=== PATIENT | male | born 1990 | race Caucasian/White ===

== ENCOUNTER 2017-01-09 16:56 | Emergency (ER) | payer SELFPAY ==
[~2017-01-09] VITALS: Ht 165.1 cm; Wt 144.0 kg
[2017-01-09 17:05] VITALS: BP 182/125; PULSE 84; RESP 14; TEMP 98.6; O2SAT 97
[2017-01-09 17:24] VITALS: BP 187/122
--- NOTE | 2017-01-09 17:28 | PD ---
HPI Chief Complaint: Respiratory Symptoms Time Seen by Provider: 17:24 Travel History International Travel<30 days: No Contact w/Intl Traveler<30days: No Traveled to known affect area: No History of Present Illness HPI 26-year-old male that presents to the ED for evaluation of cold-like symptoms since Friday. Patient reports that he does have a history of ear infections in the past. Per patient his been having some congestion and cough is productive since Friday. Nothing makes it better. Per patient he took a prescription for oral Bactrim with no relief. His been taking OTC medicines as needed. No allergies to medication. No chest pain. No sick contacts or recent travel. No abdominal pain. No nausea or vomiting. No bowel movement or urinary issues. PFSH Past Medical History Medical History: Denies Significant Hx Past Surgical History Tympanostomy Tube: Yes Social History Alcohol Use: No Tobacco Use: No Substance Use: No Allergies-Medications (Allergen,Severity, Reaction): Coded Allergies: No Known Allergies (Unverified , 01/09/17) Reported Meds & Prescriptions Reported Meds & Active Scripts Active Proair Hfa 8.5 GM Inh (Albuterol Sulfate) 90 Mcg/Act Aer 2 Puff INH Q4-6H PRN 108 mcg/actuation Tessalon Perles (Benzonatate) 100 Mg Cap 100 Mg PO TID PRN Prednisone 20 Mg Tab 20 Mg PO BID Azithromycin 250 Mg Tab 250 Mg PO DIRECTED Take 2 tabs (500 mg) on day 1 then 1 tab daily x 4 days. Review of Systems Except as stated in HPI: all other systems reviewed are Neg Physical Exam Narrative GENERAL: Well-nourished, well-developed patient in no apparent distress. SKIN: Warm and dry. HEAD: Atraumatic. Normocephalic. EYES: Pupils equal and round reactive to light and accommodation. No scleral icterus. No injection or drainage. ENT: No nasal bleeding or discharge. Mucous membranes pink and moist. TMs are clear with no sign of infection or perforation. No mastoid tenderness. Ear canals are intact bilaterally. No lymphadenopathy. Nostril mucosa is red and moist with clear mucus noted. No sinus tenderness to palpation noted. Tonsils are not enlarged or swollen. No ulvua Deviation. Tongue is midline. NECK: Trachea midline. No JVD. No meningeal signs noted CARDIOVASCULAR: Regular rate and rhythm. RESPIRATORY: No accessory muscle use. Mild wheezing on expiration bilaterally. Breath sounds equal bilaterally. GASTROINTESTINAL: Abdomen soft, non-tender, nondistended. Hepatic and splenic margins not palpable. MUSCULOSKELETAL: Extremities without clubbing, cyanosis, or edema. No obvious deformities. NEUROLOGICAL: Awake and alert. No obvious cranial nerve deficits. Motor grossly within normal limits. Five out of 5 muscle strength in the arms and legs. Normal speech. PSYCHIATRIC: Appropriate mood and affect; insight and judgment normal. Data Data Last Documented VS Vital Signs Date Time Temp Pulse Resp B/P Pulse Ox O2 Delivery O2 Flow Rate FiO2 01/09/17 17:24 187/122 01/09/17 17:05 98.6 84 14 97 Room Air Orders Chest, Single Ap (01/09/17 17:19) Albuterol Neb (Albuterol Neb) (01/09/17 17:30) MDM Medical Decision Making Medical Screen Exam Complete: Yes Emergency Medical Condition: Yes Medical Record Reviewed: Yes Interpretation(s) Chest x-ray showed possible atelectasis versus possible early consolidation Differential Diagnosis Pneumonia versus bronchitis versus viral illness versus URI versus otitis media Narrative Course 26-year-old male that presents to the ED for evaluation of cold like symptoms. Patient was properly examined and was found to have signs and symptoms concerning for pneumonia versus bronchitis. Chest x-ray will be done. Patient was given breathing treatment here. No history of asthma but patient does appear to have some wheezing on exam. Chest x-ray showed no acute disease. Possible left leg test is versus consolidation. We'll treat for pneumonia. Patient was reassured. Patient will be sent home with prescription for azithromycin, prednisone, Tessalon Perles and albuterol inhaler. Told to follow up with PCP. See ED for worsening symptoms. Continue taking OTC meds as needed. Diagnosis Primary Impression: Pneumonia Qualified Code: J18.1 - Pneumonia of left lower lobe due to infectious organism Patient Instructions: General Instructions Additional Instructions: Motrin and Tylenol for pain and fever. You can use [id number] antihistamine as well as well as Mucinex as needed for runny nose and congestion. Cough drops for cough as needed. Drink plenty of fluids. Follow-up with PCP. See ED for worsening symptoms. Med/Other Pt SpecificInfo: Prescription(s) given Scripts Albuterol 8.5 GM Inh (Proair Hfa 8.5 GM Inh)90 Mcg/Act Aer2 Puff INH Q4-6H PRN ( SHORTNESS OF BREATH) #1 INHALER Ref 0 108 mcg/actuation Prov:Darya Alvarenga DO 01/09/17 Benzonatate (Tessalon Perles)100 Mg Ptw650 Mg PO TID PRN (COUGH) #20 CAP Prov:Darya Alvarenga DO 01/09/17 Prednisone 20 Mg Tab20 Mg PO BID #10 TAB Prov:Darya Alvarenga DO 01/09/17 Azithromycin 250 Mg [id number] Mg PO DIRECTED #6 TAB Take 2 tabs (500 mg) on day 1 then 1 tab daily x 4 days. Prov:Darya Alvarenga DO 01/09/17 Disposition: 01 DISCHARGE HOME Condition: Stable Donald Chan Jan 09, 2017 17:28
[2017-01-09] MEDS ORDERED: RESP: ALBUTEROL 2.5 MG/3 ML NEB (SCH) INH ONE (17:30)
[2017-01-09] MEDS ORDERED: BENZ100 PO (17:51)
[2017-01-09] MEDS ORDERED: ALBUAER3 INH (17:51)
[2017-01-09] MEDS ORDERED: PRED20 PO (17:51)
[2017-01-09] MEDS ORDERED: AZIT250T3 PO (17:51)
--- NOTE | 2017-01-09 18:29 | RADRPT ---
EXAM DATE/TIME: 01/09/2017 18:10 [facility] COMPARISON: No previous studies available for comparison. INDICATIONS : Cough and wheezing. MEDICAL HISTORY : None. SURGICAL HISTORY : None. ENCOUNTER: Initial ACUITY: 4 - 6 days PAIN SCORE: 0/10 LOCATION: Bilateral chest FINDINGS: Mild left lung base atelectasis and/or infiltrate is seen. There is no appreciable pleural effusion f or technique. Heart and mediastinum are unremarkable. There are old healed rib fractures in the righ t upper chest. CONCLUSION: Mild left lung base atelectasis and/or infiltrate is seen. Leroy Fonseca MD on January 09, 2017 at 18:26 Board Certified Radiologist. This report was verified electronically.
== END 2017-01-09 18:45 | disposition home or self-care (01) ==
LOC: PHEFT 16:56
DX: J18.1 Lobar pneumonia, unspecified organism (principal)
CPT/HCPCS: 71010; 94664; 99284; J7613